=== PATIENT | female | born 1975 | race Two or more races ===

== ENCOUNTER 2022-11-12 06:07 | Inpatient (IN) | payer MEDICAID ==
[~2022-11-12] VITALS: Ht 162.6 cm; Wt 96.3 kg
[~2022-11-12 06:07] MED LIST: LEVO88TA4 PO; SEMA0.25 SC
[2022-11-12] MEDS ORDERED: ceFAZolin 1GM/50ML 100 ML IV ONE (06:43)
[2022-11-12] MEDS ORDERED: BUPIVACAINE 0.25% INJ 50ML VIAL ONE (06:45)
[2022-11-12] MEDS ORDERED: LIDOCAINE W/ EPINEPHRINE 1% 20ML VIAL ONE (06:45)
[2022-11-12] MEDS ORDERED: METHYLENE BLUE 0.5% 5MG/ML 10ml AMP IV ONE (06:45)
[2022-11-12] MEDS ORDERED: METOCLOPRAMIDE HCL 5MG/ml INJ 2ml VIAL IV PRN (07:00)
[2022-11-12] MEDS ORDERED: MORPHINE SULFATE INJ 2 MG/ml SYRG IV PRN ×2 (07:00→09:00)
[2022-11-12] MEDS ORDERED: HYDROmorphone HCL 2 MG/ML VL/or syr IV PRN ×2 (07:00)
[2022-11-12] MEDS ORDERED: LIDOCAINE 2% JELLY 11ml (GLYDO) ONE (07:10)
[2022-11-12] MEDS ORDERED: fentaNYL CITRATE 100 MCG/2 ML VL ONE (07:15)
[2022-11-12] MEDS ORDERED: HYDROmorphone HCL 2 MG/ML VL/or syr ONE (07:15)
[2022-11-12] MEDS ORDERED: NEOSTIGMINE 1 MG/ML INJ (10mg/10ML VIAL) ONE (07:16)
[2022-11-12] MEDS ORDERED: ROCURONIUM 10MG/ML 10ML VIAL IV ONE (07:16)
[2022-11-12] MEDS ORDERED: MIDAZOLAM HCL 2MG/2ML 2ml VIAL (1mg/ml) ONE (07:16)
[2022-11-12] MEDS ORDERED: fentaNYL CITRATE 5 ML ONE (07:16)
[2022-11-12] MEDS ORDERED: GLYCOPYRROLATE 0.2 MG/ML 1ML VIAL ONE (07:16)
[2022-11-12] MEDS ORDERED: SODIUM CHLORIDE LOCK 10 ML ONE (07:16)
[2022-11-12] MEDS ORDERED: ONDANSETRON HCL 4 MG/2 ML VIAL ONE (07:16)
[2022-11-12] MEDS ORDERED: PROPOFOL 10 MG/ML 20 ML IV ONE (07:16)
[2022-11-12] MEDS ORDERED: ceFAZolin 1GM/50ML 50 ML IV ONE (09:00)
[2022-11-12] MEDS ORDERED: NITROGLYCERIN 0.4 MG SL TAB SL PRN (09:00)
[2022-11-12] MEDS ORDERED: ONDANSETRON HCL 4 MG/2 ML VIAL IV PRN (09:00)
[2022-11-12] MEDS ORDERED: ACETAMINOPHEN 500 MG TAB PO PRN (09:00)
[2022-11-12] MEDS ORDERED: MORPHINE SULFATE 4 MG/ML SYR/VIAL IV PRN (09:00)
[2022-11-12] MEDS: SODIUM CHLORIDE 0.9% 1,000 ML IV SCH ×2 (09:00→18:00)
[2022-11-12] MEDS: HYDROcodone-ACET 5/325MG TAB PO PRN (20:44)
[2022-11-12 22:00] VITALS: BP 125/76
[2022-11-13] MEDS: SODIUM CHLORIDE 0.9% 1,000 ML IV SCH ×3 (01:46→16:50)
[2022-11-13] MEDS: HYDROcodone-ACET 5/325MG TAB PO PRN (01:53)
[2022-11-13 04:47] VITALS: BP 107/62
[2022-11-13 08:30] VITALS: BP 119/69
== END 2022-11-13 16:00 | disposition home or self-care (01) | DRG 514 ==
LOC: SUR 06:07 → OVERFLOW 08:58 → CENTRAL 15:31
PROVIDERS: ADMIT Obstetrics & Gynecology; ATTEND Obstetrics & Gynecology
PROC: 8E0W4CZ Robotic Assisted Procedure of Trunk Region, Percutaneous Endoscopic Approach (ICD-10-PCS; 2022-11-12)
PROC: 0UUF4JZ Supplement Cul-de-sac with Synthetic Substitute, Percutaneous Endoscopic Approach (ICD-10-PCS; 2022-11-12)
PROC: 0USG4ZZ Reposition Vagina, Percutaneous Endoscopic Approach (ICD-10-PCS; principal; 2022-11-12 08:19)
DX: N81.10 Cystocele, unspecified (principal)
CPT/HCPCS: 86850; 86900; 86901; G0378; J0690; J2250; J2405; J2704; J3490